=== PATIENT | female | born 1930 | race Caucasian/White ===

== ENCOUNTER → 2016-10-21 | Outpatient (CLI) | payer MEDICARE ==
--- NOTE | ~2016-10-21 | MY11 ---
[facility] A Service of [facility] RADIOLOGY TEXT RESULTS PATIENT: HERVE BALL LOCATION: [facility] : 32 UNIT #: [id number] AGE: [address]: Philipp Oneal MD SEX: F ORDER DR: [id number] [facility] [address] [place], [place] [address] [id number] O MR#: [id number] Acc #: [id number] NAME: HERVE BALL : 1930 SEX: F STUDY DATE/TIME: 10/21/2016 11:25 UNIT: [facility] ROOM: STUDY DESCRIPTION: MY Mammogram Screening Dig Tre Attending Physician: Philipp Oneal M.D. Ordering Physician: Philipp Oneal M.D. Primary Care Physician: Philipp Oneal M.D. MEDICAL IMAGING REPORT This report is preliminary unless electronic signature is present EXAM Digital screening mammogram 10/21/2016 HISTORY 86-year-old woman positive family history, sisters. Annual screen. COMPARISON Mammograms date to 08/21/2010 with most recent screening comparison 10/17/2015 FINDINGS Digital imaging of each breast was completed utilizing screening protocol. Review includes FDA-approved CAD device. Breast parenchyma is only partially replaced with a small nodular parenchymal pattern centrally in each breast. There is no interval occurring breast mass. There are no suspicious microcalcifications and no architectural deformity. IMPRESSION Stable benign mammogram. Annual screening is optional at this age. Patients over the age of 40 are entered into a reminder system with target due date for the next mammogram. A result letter will also be sent to the patient. BIRADS: 2, benign findings. Dictated by... Mitchell Garcia M.D. THIS IS AN ELECTRONICALLY VERIFIED REPORT Mitchell Garcia M.D. at 10/21/2016 1:59 PM JBB/rnr [facility] A Service of [facility] RADIOLOGY TEXT RESULTS PATIENT: HERVE BALL LOCATION: [facility] : 32 UNIT #: [id number] AGE: [address]: Philipp Oneal MD SEX: F ORDER DR: TD: 10/21/2016 12:57 JOB #: [id number] MEDICAL IMAGING REPORT Page 1 of 1 COPY
== END | disposition home or self-care (01) ==
LOC: CWCC 10:53
DX: Z12.31 Encounter for screening mammogram for malignant neoplasm of breast (principal); Z80.3 Family history of malignant neoplasm of breast
CPT/HCPCS: G0202